=== PATIENT | female | born 1945 | race Caucasian/White ===

== ENCOUNTER 2017-09-12 05:41 | Inpatient (IN) ==
[2017-09-12] MEDS ORDERED: VANCOMYCIN INJ 1,000 MG in SODIUM CHLORIDE 0.9% 250 ML IV ONE ×2 (06:00→18:00)
[2017-09-12] MEDS ORDERED: CLINDAMYCIN INJ 900 MG in PREMIX 1 EACH IV ONE (06:00)
[2017-09-12] MEDS ORDERED: CLINDAMYCIN INJ 50 ML IV ONE (06:35)
[2017-09-12] MEDS ORDERED: VANCOMYCIN 1,000 MG VIAL ONE (06:35)
[2017-09-12] MEDS ORDERED: TRANEXAMIC ACID 1,000 MG/10 ML VIAL IV ONE ×2 (06:52→08:50)
[2017-09-12] MEDS ORDERED: FAMOTIDINE 20 MG/2 ML VIAL IV ONE ×2 (07:20→07:36)
[2017-09-12] MEDS ORDERED: FAMOTIDINE 20 MG TABLET ONE (07:23)
[2017-09-12] MEDS ORDERED: LACTATED RINGERS 1,000 ML IV SCH (07:30)
[2017-09-12] MEDS ORDERED: DIAZEPAM 5 MG TABLET PO ONE (07:51)
[2017-09-12] MEDS ORDERED: FAMOTIDINE 20 MG TABLET PO ONE (07:51)
[2017-09-12] MEDS ORDERED: diphenhydrAMINE CAP 25 MG CAPSULE PO ONE (07:51)
[2017-09-12] MEDS ORDERED: BACITRACIN OINT 0.9 GM PACK TOP ONE (08:50)
[2017-09-12] MEDS ORDERED: MORPHINE 2 MG/1 ML SYRINGE IV PRN ×2 (09:17)
[2017-09-12] MEDS ORDERED: ONDANSETRON 4 MG/2 ML VIAL IV PRN ×2 (09:17→11:00)
[2017-09-12] MEDS ORDERED: oxyCODONE IR 5 MG TABLET PO PRN ×2 (09:17)
[2017-09-12] MEDS ORDERED: diphenhydrAMINE CAP 25 MG CAPSULE PO PRN (09:17)
[2017-09-12] MEDS ORDERED: MAGNESIUM HYDROXIDE SUSP 30 ML UDCUP PO PRN (09:17)
[2017-09-12] MEDS ORDERED: SUGAMMADEX 200 MG/2 ML VIAL IV ONE (10:52)
[2017-09-12] MEDS ORDERED: HYDROmorphone 2 MG/1 ML VIAL ONE (11:01)
[2017-09-12] MEDS ORDERED: ONDANSETRON 4 MG/2 ML VIAL ONE ×2 (11:01→11:13)
[2017-09-12] MEDS: HYDROmorphone 2 MG/1 ML VIAL IV PRN ×4 (11:04→11:19)
[2017-09-12] MEDS ORDERED: ROPIVACAINE 0.5% 30 ML VIAL ONE (11:08)
[2017-09-12] MEDS ORDERED: PROPOFOL 200 MG/20 ML VIAL IV ONE (11:12)
[2017-09-12] MEDS ORDERED: DESFLURANE 1 UNIT/15 MINUTE INH ONE (11:12)
[2017-09-12] MEDS ORDERED: fentaNYL 100 MCG/2 ML VIAL ONE (11:12)
[2017-09-12] MEDS ORDERED: GLYCOPYRROLATE 0.4 MG/2 ML VIAL ONE (11:13)
[2017-09-12] MEDS ORDERED: MIDAZOLAM 2 MG/2 ML VIAL ONE (11:13)
[2017-09-12] MEDS ORDERED: ACETAMINOPHEN 1,000 MG/100 ML VIAL IV ONE (11:13)
[2017-09-12] MEDS ORDERED: ROCURONIUM 100 MG/10 ML VIAL IV ONE (11:13)
[2017-09-12] MEDS ORDERED: NEOSTIGMINE 10 MG/10 ML VIAL ONE (11:13)
[2017-09-12] MEDS ORDERED: PHENYLEPHRINE 50 MG/5 ML VIAL ONE (11:13)
[2017-09-12] MEDS: KETOROLAC 15 MG/1 ML VIAL IV SCH ×2 (12:36→18:14)
[2017-09-12] MEDS: LACTATED RINGERS 1,000 ML IV SCH ×2 (12:49→20:25)
[2017-09-12] MEDS: CLINDAMYCIN INJ 900 MG in PREMIX 1 EACH IV SCH (14:34)
[2017-09-12] MEDS: ACETAMINOPHEN 500 MG TABLET PO SCH ×2 (14:35→20:24)
[2017-09-12] MEDS ORDERED: OXYMETAZOLINE 0.05% NASAL SPRAY 15 ML BOTTLE BOTH NARES PRN (17:17)
[2017-09-12] MEDS: CARVEDILOL 6.25 MG TABLET PO SCH (20:22)
[2017-09-12] MEDS: DOCUSATE SODIUM 100 MG CAPSULE PO SCH (20:23)
[2017-09-12] MEDS: rOPINIRole 1 MG TABLET PO SCH (20:25)
[2017-09-13] MEDS: CLINDAMYCIN INJ 900 MG in PREMIX 1 EACH IV SCH (00:13)
[2017-09-13] MEDS: KETOROLAC 15 MG/1 ML VIAL IV SCH ×2 (00:13→05:53)
[2017-09-13] MEDS: ACETAMINOPHEN 500 MG TABLET PO SCH ×2 (01:49→11:00)
[2017-09-13] MEDS: LACTATED RINGERS 1,000 ML IV SCH (04:31)
[2017-09-13] MEDS: FONDAPARINUX 2.5 MG/0.5 ML SYRINGE SUBCUT SCH (05:53)
[2017-09-13 06:42] LABS: Calcium 8.3 MG/DL (8.5-10.1); Osmolality,Calculated 279.5 MOS/KG (273-304); Potassium 3.7 MMOL/L (3.5-5.1)
[2017-09-13 10:00] LABS: Basophils % 0.3 % (0.0-0.8); Eosinophils # 0.4 10*3/uL (0.0-0.87); Eosinophils % 3.7 % (0.00-10.9); Hemoglobin 10.6 GM/DL (12.0-16.0); Immature Granulocytes % 0.4 %; Immature Granulocytes Absolute 0.04 #; Lymphocytes % 10.2 % (21.3-54.2); Mean Corpuscular HGB Conc 31.2 GM/DL (32-36); Mean Corpuscular Hemoglobin 29 PG (27-34); Mean Corpuscular Volume 92.9 FL (87-102); Mean Platelet Volume 10.7 FL (9.6-12.0); Monocytes % 10.2 % (1.7-12.7); Neutrophils # 7.5 10*3/uL (1.4-7.4); Neutrophils % 75.2 % (38.7-73.9); Platelet Count 201 T/CUMM (130-400); Red Blood Count 3.66 MC/CUMM (3.8-5.5)
[2017-09-13] MEDS: amLODIPine 10 MG TABLET PO SCH (10:59)
[2017-09-13] MEDS: CYANOCOBALAMIN 500 MCG TABLET PO SCH (10:59)
[2017-09-13] MEDS: LISINOPRIL/HCTZ 20-12.5 MG TABLET PO SCH (10:59)
[2017-09-13] MEDS: CHOLECALCIFEROL 1,000 UNIT TABLET PO SCH (10:59)
[2017-09-13] MEDS: ALPRAZolam 0.5 MG TABLET PO SCH (11:00)
[2017-09-13] MEDS: DOCUSATE SODIUM 100 MG CAPSULE PO SCH ×2 (11:00→20:54)
[2017-09-13] MEDS: CARVEDILOL 6.25 MG TABLET PO SCH ×2 (11:00→20:54)
[2017-09-13] MEDS: CELECOXIB 200 MG CAPSULE PO SCH (17:35)
[2017-09-13] MEDS: rOPINIRole 1 MG TABLET PO SCH (20:55)
[2017-09-14] MEDS: FONDAPARINUX 2.5 MG/0.5 ML SYRINGE SUBCUT SCH (05:54)
[2017-09-14] MEDS: DOCUSATE SODIUM 100 MG CAPSULE PO SCH (09:11)
[2017-09-14] MEDS: CYANOCOBALAMIN 500 MCG TABLET PO SCH (09:11)
[2017-09-14] MEDS: LISINOPRIL/HCTZ 20-12.5 MG TABLET PO SCH (09:11)
[2017-09-14] MEDS: CARVEDILOL 6.25 MG TABLET PO SCH (09:11)
[2017-09-14] MEDS: amLODIPine 10 MG TABLET PO SCH (09:11)
[2017-09-14] MEDS: CHOLECALCIFEROL 1,000 UNIT TABLET PO SCH (09:11)
[2017-09-14] MEDS: ALPRAZolam 0.5 MG TABLET PO SCH (09:12)
[2017-09-14] MEDS: CELECOXIB 200 MG CAPSULE PO SCH (09:12)
[2017-09-14 12:00] VITALS: BP 153/71
== END 2017-09-14 15:40 | disposition home health service (06) | DRG 470 ==
LOC: N.OR 05:41 → N.SDSINP 06:17 → N.3E 12:03
PROVIDERS: ADMIT Orthopaedic Surgery; ATTEND Orthopaedic Surgery